=== PATIENT | female | born 1970 | race African-American/Black ===

== ENCOUNTER → 2020-05-03 08:13 | Outpatient (BNVA) | payer OTHER, SELFPAY | PROVIDERS: PCP Nurse Practitioner Family; Visit Provider Surgery | DX: E66.01 Morbid (severe) obesity due to excess calories (principal); Z68.44 Body mass index [BMI] 60.0-69.9, adult; D86.9 Sarcoidosis, unspecified; K21.9 Gastro-esophageal reflux disease without esophagitis; I48.91 Unspecified atrial fibrillation; I10 Essential (primary) hypertension; G47.30 Sleep apnea, unspecified; J45.909 Unspecified asthma, uncomplicated; Z71.6 Tobacco abuse counseling | CPT/HCPCS: Q3014 ==

== ENCOUNTER → 2020-05-05 13:02 | Outpatient (BNVA) | payer OTHER, SELFPAY | PROVIDERS: PCP Nurse Practitioner Family; Visit Provider Physician Assistant ==

== ENCOUNTER 2020-05-10 11:07 | Outpatient (REF) | payer OTHER, SELFPAY ==
--- NOTE | ~2020-05-10 | XR_ITS ---
EXAMINATION: XR CHEST CLINICAL INFORMATION: Gastroesophageal reflux disease without esophagitis. COMPARISON: None TECHNIQUE: 2 views of the chest were obtained. FINDINGS: The lungs are well expanded. There is no focal consolidation, edema, or effusion. No pneumothorax. The cardiomediastinal silhouette is within normal limits. No acute osseous abnormality. XR/XR chest 2V IMPRESSION: No acute pulmonary findings.
[2020-05-10 13:14] LABS: MANUAL DIFF FLAG NO
[2020-05-10 13:19] LABS: Basophils Percent Auto 0.5 % (0-2); Eosinophils Absolute Auto 0.1 X10*3/uL (0.0-0.4); Eosinophils Percent Auto 0.9 % (0-4); Hematocrit 37.4 % (37-47); Hemoglobin 11.7 g/dl (12.0-16.0); Imm Gran Abs Auto 0.03 X10*3/uL (0.00-0.03); Imm Gran Pct Auto 0.4 % (0.0-0.4); Lymphocytes Absolute Auto 2.5 X10*3/uL (1.2-4.9); Mean Corpuscular HGB Conc 31.3 g/dl (31.0-35.0); Mean Corpuscular Hemoglobin 24.8 pg (27.0-33.0); Mean Corpuscular Volume 79.2 fL (80-98); Mean Platelet Volume 9.9 fL (9.4-12.3); Monocytes Absolute Auto 0.8 X10*3/uL (0.1-1.2); Monocytes Percent Auto 10.1 % (2-11); Neutrophils Absolute Auto 4.2 X10*3/uL (2.0-8.3); Neutrophils Percent Auto 55.1 % (45-73); Platelet Count 315 X10*3/uL (160-400); Red Blood Count 4.72 X10*6/uL (4.20-5.50); Red Cell Distribution Width 15.6 % (11.0-16.0); White Blood Count 7.7 X10*3/uL (4.8-10.8)
[2020-05-10 13:27] LABS: Estimated Average Glucose 128 mg/dL; Hemoglobin A1c % 6.1 %
[2020-05-10 14:00] LABS: Alanine Aminotransferase 15 U/L (0-31); Albumin Level 3.9 g/dL (3.5-5.0); Alkaline Phosphatase 90 U/L (39-117); Anion Gap 15 (12-20); Aspartate Amino Transferase 12 U/L (5-31); Bilirubin Total 0.3 mg/dL (0.0-1.0); Blood Urea Nitrogen 14 mg/dL (9-16); C Reactive Protein 7.67 mg/dL (< or = 0.50); Calcium 8.7 mg/dL (8.4-10.2); Carbon Dioxide 26 mmol/L (22-29); Chloride 102 mmol/L (96-108); Cholesterol 160 mg/dL; Estimated Glomerular Filt Rate > 60; Glucose Random 119 mg/dL (60-115); HDL Cholesterol 55 mg/dL; LDL Cholesterol Calculated 92 mg/dl; Potassium 3.8 mmol/L (3.3-5.1); Sodium 139 mmol/L (135-145); Triglycerides 69 mg/dL
[2020-05-10 14:20] LABS: Folate 13.6 ng/mL (> or = 4.0); Vitamin B12 643 pg/mL (200-900)
[2020-05-10 14:22] LABS: Ferritin 10 ng/mL (10-250); TSH reflex Free T4 0.59 uIU/mL (0.32-4.0); Vitamin D 25-OH Total 35.5 ng/mL (>30)
--- NOTE | 2020-05-10 17:25 | PFT_ITS ---
FLOWS: FEV1 of 57% of predicted at 1.18 L. FVC 83% of predicted at 2.13 L. FEV1 to FVC ratio of 0.55. No bronchodilator response. LUNG VOLUMES: Total lung capacity 99% of predicted at 4.39 L. Residual volume 145% of predicted at 2.27 L. Slow vital capacity 63% of predicted at 2.12 L. Expiratory reserve volume 31% of predicted at 0.34 L. Diffusion capacity is mildly decreased, diffusion capacity corrects to normal after adjustment for alveolar ventilation. IMPRESSION: Moderate obstructive ventilatory defect with no bronchodilator response. Increased residual volume suggests air trapping. Decreased expiratory reserve volume suggests extrathoracic restriction likely secondary to abdominal obesity. Hollis Locke MD AP/MODL / [id number] MTDD
[2020-05-11 13:57] LABS: Calcium (PTHI) 8.9 mg/dL (8.6-10.4); PTHI 54 pg/mL (14-64)
[2020-05-11 17:56] LABS: Insulin Level Total 10.5 uIU/mL
[2020-05-12 23:42] LABS: Zinc 72 mcg/dL (60-130)
[2020-05-14 01:36] LABS: Vitamin A 24 mcg/dL (38-98)
[2020-05-14 10:22] LABS: Vitamin B1 9 nmol/L (8-30)
== END 2020-05-10 11:08 | disposition home or self-care (01) ==
LOC: HO.RESP 11:07
PROVIDERS: PCP Nurse Practitioner Family; Visit Provider Surgery
DX: J45.41 Moderate persistent asthma with (acute) exacerbation (principal); K21.9 Gastro-esophageal reflux disease without esophagitis; I48.91 Unspecified atrial fibrillation; I10 Essential (primary) hypertension; G47.30 Sleep apnea, unspecified; E66.01 Morbid (severe) obesity due to excess calories; D86.9 Sarcoidosis, unspecified
CPT/HCPCS: 36415; 71046; 80053; 80061; 82306; 82607; 82728; 82746; 83036; 83525; 83970; 84425; 84443; 84590; 84630; 85025; 86140; 94060; 94727; 94729

== ENCOUNTER → 2020-05-24 07:31 | Outpatient (BNVA) | payer OTHER, SELFPAY | PROVIDERS: PCP Nurse Practitioner Family; Visit Provider Surgery | DX: E66.01 Morbid (severe) obesity due to excess calories (principal); Z68.44 Body mass index [BMI] 60.0-69.9, adult; Z71.3 Dietary counseling and surveillance | CPT/HCPCS: Q3014 ==

== ENCOUNTER 2020-05-25 09:43 | Outpatient (REF) | payer OTHER, SELFPAY ==
--- NOTE | ~2020-05-25 | US_ITS ---
EXAMINATION: FL UPPER GI SERIES US ABDOMEN CLINICAL INFORMATION: Preop evaluation. Excessive calories. COMPARISON: None. TECHNIQUE: Routine ultrasound of the abdomen was performed. Upper GI air-contrast study was performed. FINDINGS: UPPER GI: Following oral administration of thick barium and effervescent granules, there is normal propagation of bolus from the oral cavity through the pharynx and esophagus and into the stomach without any evidence of obstruction, narrowing or stricture. On placing patient supine and prone lying, there is [id number] gastroesophageal reflux. No hiatal hernia seen. The course and caliber of the stomach, dorsal bulb and sweep are normal. The mucosal pattern of the stomach and the duodenum is normal. ABDOMEN ULTRASOUND: Pancreas: The head, body and tail of pancreas is homogeneous echotexture without enlargement. Liver: The liver is normal size, shape with and heterogeneous echotexture. No focal lesion or intrahepatic ductal dilatation seen. There is hepatopedal flow seen in the portal vein. Gallbladder: Distended without any echogenic stones or wall thickening. CBD: Measures 0.45 cm. It is normal. Right Kidney: The right kidney measures 11.1 cm in length. There is normal cortical thickness. No echogenic stones, cyst or hydronephrosis seen. Left Kidney: The left kidney measures 11.9 cm in length. There is normal cortical thickness. No echogenic stones, cyst or hydronephrosis seen. Spleen: The spleen is homogeneous echotexture and measures 10.1 cm. US/US abdomen comp w elastography IMPRESSION: [id number] gastroesophageal reflux without hiatal hernia. Heterogenous and echogenic liver suggestive of hepatic steatosis. No focal lesion seen. The rest of the abdominal ultrasound is unremarkable. Elastography reveals a median stiffness value of 2.24 suggestive of of cALCD.
== END 2020-05-25 09:44 | disposition home or self-care (01) ==
LOC: HO.US 09:43
PROVIDERS: Visit Provider Surgery
DX: Z01.818 Encounter for other preprocedural examination (principal); E66.01 Morbid (severe) obesity due to excess calories; K21.9 Gastro-esophageal reflux disease without esophagitis; G47.30 Sleep apnea, unspecified; I10 Essential (primary) hypertension; I48.91 Unspecified atrial fibrillation; J45.909 Unspecified asthma, uncomplicated
CPT/HCPCS: 74240; 76705; 76981

== ENCOUNTER → 2020-05-25 | Outpatient (REF) | payer OTHER, SELFPAY ==
--- NOTE | 2020-05-10 12:16 | ECG_ITS ---
Test Reason : GERD Blood Pressure : / mmHG Vent. Rate : 089 BPM Atrial Rate : 089 BPM P-R Int : 124 ms QRS Dur : 104 ms QT Int : 370 ms P-R-T Axes : 074 058 064 degrees QTc Int : 450 ms Sinus rhythm with Premature atrial complexes Nonspecific ST abnormality Abnormal ECG No previous ECGs available Referred By: Khris Henry Electronically Signed By:Dion Alas
== END ==
LOC: HO.CARD
PROVIDERS: Visit Provider Surgery
DX: Z01.818 Encounter for other preprocedural examination (principal); E66.01 Morbid (severe) obesity due to excess calories; K21.9 Gastro-esophageal reflux disease without esophagitis; I48.91 Unspecified atrial fibrillation; J45.909 Unspecified asthma, uncomplicated; I10 Essential (primary) hypertension; G47.30 Sleep apnea, unspecified
CPT/HCPCS: 93005

== ENCOUNTER → 2020-05-31 13:31 | Outpatient (BNVA) | payer OTHER, SELFPAY | PROVIDERS: PCP Nurse Practitioner Family; Visit Provider Physician Assistant ==

== ENCOUNTER → 2020-06-01 08:06 | Outpatient (BNVA) | payer OTHER, SELFPAY | PROVIDERS: PCP Nurse Practitioner Family; Visit Provider Dietitian, Registered ==

== ENCOUNTER 2020-06-14 11:19 | Outpatient (REF) | payer OTHER, SELFPAY ==
[2020-06-15 13:36] LABS: H Pylori Breath Test NOT DETECTED (NOT DETECTED)
== END 2020-06-14 11:20 | disposition home or self-care (01) ==
LOC: HO.LNP 11:19
PROVIDERS: PCP Nurse Practitioner Family; Visit Provider Physician Assistant
DX: E66.01 Morbid (severe) obesity due to excess calories (principal); K21.9 Gastro-esophageal reflux disease without esophagitis; I48.91 Unspecified atrial fibrillation; J45.909 Unspecified asthma, uncomplicated; I10 Essential (primary) hypertension; G47.30 Sleep apnea, unspecified
CPT/HCPCS: 83013; 99211

== ENCOUNTER → 2020-06-24 08:11 | Outpatient (BNVA) | payer OTHER, SELFPAY | PROVIDERS: PCP Nurse Practitioner Family; Visit Provider Dietitian, Registered | DX: E66.01 Morbid (severe) obesity due to excess calories (principal); Z68.44 Body mass index [BMI] 60.0-69.9, adult | CPT/HCPCS: 97803 ==

== ENCOUNTER 2024-01-16 15:59 | Emergency (ER) | payer OTHER, SELFPAY ==
--- NOTE | ~2024-01-16 | XR_ITS ---
EXAMINATION: Left hip 3 views and lumbar spine 2-3 views. CLINICAL INDICATION: Low back pain and left hip pain. COMPARISON: MRI lumbar spine 05/26/2021 FINDINGS: AP pelvis and left hip: There is normal symmetry of SI joints and hip joints. No lytic or sclerotic process in the pelvis. AP and frog-leg views left hip reveals no visible acute fracture, dislocation or subluxation seen. The soft tissues are normal. Lumbar spine: There is normal lumbar lordosis the vertebral heights and alignment is normal. There is mild loss of L5-S1 and L4-5 disc heights. Rest of disc heights are normal. No lytic or sclerotic process seen. The paravertebral soft tissues are normal. XR/XR lumbar spine 2-3V IMPRESSION: 1. Unremarkable AP pelvis and left hip exam. 2. Mild degenerative disc changes L4-5 and L5-S1 disc levels. No visible acute fracture or dislocation seen. Electronically signed by: Tong Torres MD 01/16/2024 05:30 PM [facility]
--- NOTE | ~2024-01-16 | XR_ITS ---
EXAMINATION: Left hip 3 views and lumbar spine 2-3 views. CLINICAL INDICATION: Low back pain and left hip pain. COMPARISON: MRI lumbar spine 05/26/2021 FINDINGS: AP pelvis and left hip: There is normal symmetry of SI joints and hip joints. No lytic or sclerotic process in the pelvis. AP and frog-leg views left hip reveals no visible acute fracture, dislocation or subluxation seen. The soft tissues are normal. Lumbar spine: There is normal lumbar lordosis the vertebral heights and alignment is normal. There is mild loss of L5-S1 and L4-5 disc heights. Rest of disc heights are normal. No lytic or sclerotic process seen. The paravertebral soft tissues are normal. XR/XR hip LT w PEL1V IMPRESSION: 1. Unremarkable AP pelvis and left hip exam. 2. Mild degenerative disc changes L4-5 and L5-S1 disc levels. No visible acute fracture or dislocation seen. Electronically signed by: Tong Torres MD 01/16/2024 05:30 PM [facility]
[2024-01-16 16:17] VITALS: BP 138/62; PULSE 66; RESP 20; TEMP 36.6; O2SAT 98; BMI 53.2
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
[2024-01-16] MEDS: Cyclobenzaprine HCl 10 MG TABLET PO (19:19)
[2024-01-16 19:29] VITALS: BP 139/79; PULSE 65; RESP 20; TEMP 36.4; O2SAT 100
[2024-01-16 19:36] VITALS: BP 139/79; PULSE 65; RESP 20; TEMP 36.4; O2SAT 100
== END 2024-01-16 19:38 | disposition home or self-care (01) ==
PROVIDERS: Emergency Provider Emergency Medicine; PCP Nurse Practitioner Family
DX: S39.012A Strain of muscle, fascia and tendon of lower back, initial encounter (principal); I48.91 Unspecified atrial fibrillation; M25.552 Pain in left hip; V43.52XA Car driver injured in collision with other type car in traffic accident, initial encounter; Y93.89 Activity, other specified; Y92.488 Other paved roadways as the place of occurrence of the external cause; Y99.8 Other external cause status; Z79.01 Long term (current) use of anticoagulants
CPT/HCPCS: 72100; 73502; 99283